=== PATIENT | male | born 1965 | race African-American/Black ===

== ENCOUNTER 2018-12-27 12:25 | Emergency (ER) | payer SELFPAY ==
[2018-12-27] MEDS ORDERED: CEFTRIAXONE 250 MG/VIAL ONE (13:22)
[2018-12-27] MEDS ORDERED: AZITHROMYCIN 250 MG TAB ONE (13:22)
[2018-12-27] MEDS ORDERED: LIDOCAINE 1% MPF 2 ML AMPULE ONE (13:22)
[2018-12-27 14:11] LABS: Urine Bacteria <20 /HPF (NONE SEEN); Urine RBC NONE SEEN /HPF (NONE SEEN)
[2018-12-27 14:13] LABS: Urine Culture Reflex Order NOT NEEDED
--- NOTE | 2018-12-27 14:17 | EDPHYS ---
Physician Documentation [facility] Name: Vance Kuo Age: 53 yrs Sex: Male : 1965 Arrival Date: 12/27/2018 Time: 12:29 Bed 12 Private MD: None, None ED Physician Jonathan Santizo HPI: 12/27 12:50 This 53 yrs old Black Male presents to ER via Ambulatory with complaints of Urinary pm1 Problem. 12:50 The patient presents with urinary symptoms, dysuria. Onset: The symptoms/episode pm1 began/occurred 1 month(s) ago. Modifying factors: The symptoms are alleviated by nothing, the symptoms are aggravated by urinating. Associated signs and symptoms: Pertinent negatives: abdominal pain, diarrhea, fever, hematuria, nausea, vomiting. Severity of symptoms: in the emergency department the symptoms are unchanged. The patient has experienced a previous episode, many years ago. The patient has not recently seen a physician. Patient with complaints of burning with urination for the past 1 month. Prior to onset of symptoms his girlfriend had a "urine infection." No penile discharge or testicular pain. Historical: - Allergies: 12:46 No Known Allergies; hj - Home Meds: 12:46 None [Active]; hj - PMHx: 12:46 None; hj - PSHx: 12:46 None; hj - Immunization history:: Adult Immunizations not up to date. - Social history:: Smoking status: Patient/guardian denies using tobacco, Patient/guardian denies using alcohol. - Ebola Screening: : Patient negative for fever greater than or equal to 101.5 degrees Fahrenheit, and additional compatible Ebola Virus Disease symptoms Patient denies exposure to infectious person Patient denies travel to an Ebola-affected area in the 21 days before illness onset. ROS: 12:50 Constitutional: Negative for fever, chills, and weight loss, Eyes: Negative for injury, pm1 pain, redness, and discharge, ENT: Negative for injury, pain, and discharge, Neck: Negative for injury, pain, and swelling, Cardiovascular: Negative for chest pain, palpitations, and edema, Respiratory: Negative for shortness of breath, cough, wheezing, and pleuritic chest pain, Abdomen/GI: Negative for abdominal pain, nausea, vomiting, diarrhea, and constipation, Back: Negative for injury and pain. 12:50 MS/Extremity: Negative for injury and deformity, Skin: Negative for injury, rash, and discoloration, Neuro: Negative for headache, weakness, numbness, tingling, and seizure. 12:50 : Positive for burning with urination, Negative for penile discharge, penile pain, testicular pain Exam: 12:50 Constitutional: This is a well developed, well nourished patient who is awake, alert, pm1 and in no acute distress. Head/Face: Normocephalic, atraumatic. Eyes: Pupils equal round and reactive to light, extra-ocular motions intact. Lids and lashes normal. Conjunctiva and sclera are non-icteric and not injected. Cornea within normal limits. Periorbital areas with no swelling, redness, or edema. ENT: Nares patent. No nasal discharge, no septal abnormalities noted. Tympanic membranes are normal and external auditory canals are clear. Oropharynx with no redness, swelling, or masses, exudates, or evidence of obstruction, uvula midline. Mucous membranes moist. Neck: Trachea midline, no thyromegaly or masses palpated, and no cervical lymphadenopathy. Supple, full range of motion without nuchal rigidity, or vertebral point tenderness. No Meningismus. Chest/axilla: Normal chest wall appearance and motion. Nontender with no deformity. No lesions are appreciated. Cardiovascular: Regular rate and rhythm with a normal S1 and S2. No gallops, murmurs, or rubs. Normal PMI, no JVD. No pulse deficits. Respiratory: Lungs have equal breath sounds bilaterally, clear to auscultation and percussion. No rales, rhonchi or wheezes noted. No increased work of breathing, no retractions or nasal flaring. Abdomen/GI: Soft, non-tender, with normal bowel sounds. No distension or tympany. No guarding or rebound. No evidence of tenderness throughout. Back: No spinal tenderness. No costovertebral tenderness. Full range of motion. Skin: Warm, dry with normal turgor. Normal color with no rashes, no lesions, and no evidence of cellulitis. MS/ Extremity: Pulses equal, no cyanosis. Neurovascular intact. Full, normal range of motion. 12:50 Neuro: Orientation: is normal, Motor: is normal, moves all fours, Gait: is steady, at a normal pace, without difficulty. Vital Signs: 12:46 BP 148 / 92; Pulse 75; Resp 18; Temp 98.6(O); Pulse Ox 100% on R/A; Weight 112.49 kg; hj Height 5 ft. 11 in. (180.34 cm); Pain 6/10; 14:20 BP 138 / 89; Pulse 74; Resp 18; Pulse Ox 100% ; hj 12:46 Body Mass Index 34.59 (112.49 kg, 180.34 cm) MDM: 12:54 Patient medically screened. pm1 14:14 Data reviewed: vital signs. Data interpreted: Pulse oximetry: on room air is 100 %. pm1 Interpretation: normal. Counseling: I had a detailed discussion with the patient and/or guardian regarding: the historical points, exam findings, and any diagnostic results supporting the discharge/admit diagnosis, lab results, the need for outpatient follow up, to return to the emergency department if symptoms worsen or persist or if there are any questions or concerns that arise at home. 12/27 12:48 Order name: Urine Microscopic Only; Complete Time: 14:14 12/27 13:05 Order name: Urine Dipstick--Ancillary (enter results) 12/27 12:48 Order name: Urine Dipstick-Ancillary (obtain specimen); Complete Time: 13:03 Administered Medications: 12:57 Drug: Rocephin (cefTRIAXone) 250 mg Route: IM; Site: right deltoid; 13:14 Follow up: Response: No adverse reaction 12:57 Drug: AZITHromycin 1 grams Route: PO; 13:14 Follow up: Response: No adverse reaction Disposition: 15:53 Co-signature as Attending Physician, Jonathan Santizo MD. rn Disposition: 12/27/18 14:16 Discharged to Home. Impression: Dysuria. - Condition is Stable. - Discharge Instructions: Dysuria. - Medication Reconciliation Form, Thank You Letter, Antibiotic Education, Prescription Opioid Use form. - Follow up: Emergency Department; When: As needed; Reason: Worsening of condition. Follow up: Private Physician; When: 2 - 3 days; Reason: Recheck today's complaints, Continuance of care, Re-evaluation by your physician. - Problem is new. - Symptoms have improved. Signatures: Dispatcher [employer] EDMS Jonathan Santizo MD MD rn Joaquin, Henry, RN RN Heriberto Roberson, CHILD CARE GIVER CHILD CARE GIVER pm1 Corrections: (The following items were deleted from the chart) 14:20 14:16 12/27/2018 14:16 Discharged to Home. Impression: Dysuria. Condition is Stable. hj Forms are Medication Reconciliation Form, Thank You Letter, Antibiotic Education, Prescription Opioid Use. Follow up: Emergency Department; When: As needed; Reason: Worsening of condition. Follow up: Private Physician; When: 2 - 3 days; Reason: Recheck today's complaints, Continuance of care, Re-evaluation by your physician. Problem is new. Symptoms have improved. pm1
--- NOTE | 2018-12-27 14:17 | ER ---
Nurse's Notes [facility] Name: Vance Kuo Age: 53 yrs Sex: Male : 1965 Arrival Date: 12/27/2018 Time: 12:29 Bed 12 Private MD: None, None Diagnosis: Dysuria Presentation: 12/27 12:43 Presenting complaint: Patient states: my girlfriend told me she had a bacterial hj infection, im not sure whether its STD or from the urine, but for a month, i have this pain when i pee; denies penile discharge;. Transition of care: patient was not received from another setting of care. Onset of symptoms was December 27, 2018. Risk Assessment: Do you want to hurt yourself or someone else? Patient reports no desire to harm self or others. Initial Sepsis Screen: Does the patient meet any 2 criteria? No. Patient's initial sepsis screen is negative. Does the patient have a suspected source of infection? No. Patient's initial sepsis screen is negative. Care prior to arrival: None. 12:43 Method Of Arrival: Ambulatory 12:43 Acuity: ELIZABETH 4 hj Triage Assessment: 13:50 General: Appears in no apparent distress. uncomfortable, Behavior is calm, cooperative, hj appropriate for age. Pain: Denies pain. Historical: - Allergies: 12:46 No Known Allergies; hj - Home Meds: 12:46 None [Active]; hj - PMHx: 12:46 None; hj - PSHx: 12:46 None; hj - Immunization history:: Adult Immunizations not up to date. - Social history:: Smoking status: Patient/guardian denies using tobacco, Patient/guardian denies using alcohol. - Ebola Screening: : Patient negative for fever greater than or equal to 101.5 degrees Fahrenheit, and additional compatible Ebola Virus Disease symptoms Patient denies exposure to infectious person Patient denies travel to an Ebola-affected area in the 21 days before illness onset. Screenin:46 Abuse screen: Denies threats or abuse. Denies injuries from another. Nutritional hj screening: No deficits noted. Tuberculosis screening: No symptoms or risk factors identified. Fall Risk None identified. Assessment: 12:46 General: Appears in no apparent distress. uncomfortable, Behavior is calm, cooperative, hj appropriate for age. Pain: Denies pain. Neuro: Level of Consciousness is awake, alert, obeys commands, Oriented to person, place, time, situation, Appropriate for age. Cardiovascular: Capillary refill < 3 seconds Patient's skin is warm and dry. Respiratory: Airway is patent Respiratory effort is even, unlabored, Respiratory pattern is regular, symmetrical. GI: No signs and/or symptoms were reported involving the gastrointestinal system. : Reports pain. EENT: No signs and/or symptoms were reported regarding the EENT system. Derm: No signs and/or symptoms reported regarding the dermatologic system. Musculoskeletal: No signs and/or symptoms reported regarding the musculoskeletal system. 13:52 Reassessment: awaiting umic results and POC;. hj Vital Signs: 12:46 BP 148 / 92; Pulse 75; Resp 18; Temp 98.6(O); Pulse Ox 100% on R/A; Weight 112.49 kg; hj Height 5 ft. 11 in. (180.34 cm); Pain 6/10; 14:20 BP 138 / 89; Pulse 74; Resp 18; Pulse Ox 100% ; hj 12:46 Body Mass Index 34.59 (112.49 kg, 180.34 cm) hj ED Course: 12:29 Patient arrived in ED. mr 12:29 None, None is Private Physician. mr 12:46 Triage completed. hj 12:46 Patient has correct armband on for positive identification. Bed in low position. Call hj light in reach. Side rails up X 1. 12:48 Arm band placed on right wrist. hj 12:54 Heriberto Sheth NP is PHCP. pm1 12:54 Jonathan Santizo MD is Attending Physician. pm1 13:14 Urine Microscopic Only Sent. hj 13:32 Saurabh Jo RN is Primary Nurse. hj 14:20 No provider procedures requiring assistance completed. Patient did not have IV access hj during this emergency room visit. Administered Medications: 12:57 Drug: Rocephin (cefTRIAXone) 250 mg Route: IM; Site: right deltoid; hj 13:14 Follow up: Response: No adverse reaction hj 12:57 Drug: AZITHromycin 1 grams Route: PO; hj 13:14 Follow up: Response: No adverse reaction hj Outcome: 14:16 Discharge ordered by . pm1 14:20 Discharged to home ambulatory. hj 14:20 Condition: stable 14:20 Discharge instructions given to patient, Instructed on discharge instructions, follow up and referral plans. Demonstrated understanding of instructions, follow-up care. 14:20 Patient left the ED. [place] Signatures: Danica Multani Henry, RN RN Heriberto Roberson, ADJUNCT SPANISH INSTRUCTOR ADJUNCT SPANISH INSTRUCTOR pm1
[2018-12-27 14:59] LABS: Urine Blood NEGATIVE (NEG); Urine Glucose NEGATIVE (NEG); Urine Protein NEGATIVE (NEG); Urine Specific Gravity 1.025 (1.005-1.030)
== END 2018-12-27 14:20 | disposition home or self-care (01) ==
LOC: ER 12:25
DX: R30.0 Dysuria (principal)
CPT/HCPCS: 81003; 81015; 96372; 99283; J0696; J2001

== ENCOUNTER 2019-06-24 09:49 | Emergency (ER) | payer SELFPAY ==
--- NOTE | 2019-06-24 10:33 | ER ---
Nurse's Notes [facility] Name: Vance Kuo Age: 53 yrs Sex: Male : 1965 Arrival Date: 06/24/2019 Time: 09:50 Bed 23 Private MD: Diagnosis: Dysuria Presentation: 06/24 09:59 Presenting complaint: Patient states: Pain with urination for the past 4 days. aj1 Transition of care: patient was not received from another setting of care. Onset of symptoms was 2018. Risk Assessment: Do you want to hurt yourself or someone else? Patient reports no desire to harm self or others. Initial Sepsis Screen: Does the patient meet any 2 criteria? No. Patient's initial sepsis screen is negative. Does the patient have a suspected source of infection? Yes: Dysuria/Frequency/Urgency/UTI. Care prior to arrival: None. 09:59 Method Of Arrival: Ambulatory aj1 09:59 Acuity: ELIZABETH 4 aj1 Triage Assessment: 10:00 General: Appears in no apparent distress. comfortable, Behavior is calm, cooperative, aj1 appropriate for age. Pain: Pain currently is 8 out of 10 on a pain scale. Neuro: Level of Consciousness is awake, alert, obeys commands, Oriented to person, place, time, situation. Cardiovascular: Patient's skin is warm and dry. Respiratory: Airway is patent Respiratory effort is even, unlabored, Respiratory pattern is regular, symmetrical. : Reports burning with urination. Historical: - Allergies: 10:00 No Known Allergies; aj1 - PMHx: 10:00 None; aj1 - PSHx: 10:00 None; aj1 - Immunization history:: Flu vaccine is not up to date. - Social history:: Smoking status: Patient/guardian denies using tobacco. - Ebola Screening: : Patient denies travel to an Ebola-affected area in the 21 days before illness onset. Screenin:24 Abuse screen: Denies threats or abuse. Denies injuries from another. Nutritional hb screening: No deficits noted. Tuberculosis screening: No symptoms or risk factors identified. Fall Risk None identified. Assessment: 10:24 General: Appears in no apparent distress. Behavior is calm, cooperative. Pain: Pain hb currently is 8 out of 10 on a pain scale. Neuro: Level of Consciousness is awake, alert, obeys commands, Oriented to person, place, time, situation. Cardiovascular: Capillary refill < 3 seconds Patient's skin is warm and dry. Respiratory: Airway is patent Respiratory effort is even, unlabored, Respiratory pattern is regular, symmetrical. GI: No signs and/or symptoms were reported involving the gastrointestinal system. : Reports burning with urination. EENT: No signs and/or symptoms were reported regarding the EENT system. Derm: Skin is pink, warm \T\ dry. Musculoskeletal: No signs and/or symptoms reported regarding the musculoskeletal system. Vital Signs: 10:00 BP 143 / 95; Pulse 76; Resp 18; Temp 97.1; Pulse Ox 98% on R/A; Weight 116.12 kg (R); aj1 Height 5 ft. 11 in. (180.34 cm) (R); Pain 8/10; 10:00 Body Mass Index 35.70 (116.12 kg, 180.34 cm) aj1 ED Course: 09:50 Patient arrived in ED. as 09:59 Triage completed. aj1 10:00 Arm band placed on Patient placed in waiting room, Patient notified of wait time. aj1 10:01 [facility]C [facility] kb 10:01 Jose Crane MD is Attending Physician. kb 10:23 Carla Pineda, JEANNIE is Primary Nurse. hb 10:23 Urine Microscopic Only Sent. hb 10:30 Patient has correct armband on for positive identification. hb 11:03 No provider procedures requiring assistance completed. Patient did not have IV access hb during this emergency room visit. Administered Medications: 10:32 CANCELLED (Other Intervention Used): Rocephin 1 grams IV at calculated rate once; Given kb slow IV push per pharmacy instructions 10:40 Drug: Zithromax 1 grams Route: PO; hb 11:03 Follow up: Response: Medication administered at discharge. hb 10:41 Drug: Rocephin (cefTRIAXone) 250 mg Route: IM; Site: right ventrogluteal; hb 11:03 Follow up: Response: No adverse reaction hb Outcome: 10:33 Discharge ordered by . kb 11:03 Discharged to home ambulatory. hb 11:03 Condition: stable 11:03 Discharge instructions given to patient, Instructed on discharge instructions, follow up and referral plans. medication usage, Demonstrated understanding of instructions, follow-up care, medications, Prescriptions given X 1. 11:03 Patient left the ED. hb Signatures: Qiana Torres, GILL WEAVER-Razia Rosario RN RN aj1 Lisa Hand as Carla Pineda, RN RN hb
--- NOTE | 2019-06-24 10:34 | EDPHYS ---
Physician Documentation [facility] Name: Vance Kuo Age: 53 yrs Sex: Male : 1965 Arrival Date: 06/24/2019 Time: 09:50 Bed 23 Private MD: ED Physician Jose Crane HPI: 06/24 10:29 This 53 yrs old Black Male presents to ER via Ambulatory with complaints of Pain With kb Urination. 10:29 The patient presents with urinary symptoms, dysuria. Onset: The symptoms/episode kb began/occurred 4 day(s) ago. Modifying factors: The symptoms are alleviated by nothing, the symptoms are aggravated by nothing. Associated signs and symptoms: Pertinent positives: dysuria, Pertinent negatives: abdominal pain, constipation, diarrhea, fever, hematuria, nausea, vomiting. Severity of symptoms: At their worst the symptoms were moderate, in the emergency department the symptoms are unchanged. The patient has not recently seen a physician. Pt reports dysuria. Has had ureteritis in the past and this feels the same. "I just didn't want to wait for the health clinic to open on Tuesday. They gave me a shot and doxycycline last time and it cleared it up.". Historical: - Allergies: 10:00 No Known Allergies; aj1 - PMHx: 10:00 None; aj1 - PSHx: 10:00 None; aj1 - Immunization history:: Flu vaccine is not up to date. - Social history:: Smoking status: Patient/guardian denies using tobacco. - Ebola Screening: : Patient denies travel to an Ebola-affected area in the 21 days before illness onset. ROS: 10:31 Constitutional: Negative for fever, chills, and weight loss, ENT: Negative for injury, kb pain, and discharge, Neck: Negative for injury, pain, and swelling, Cardiovascular: Negative for chest pain, palpitations, and edema, Respiratory: Negative for shortness of breath, cough, wheezing, and pleuritic chest pain, Abdomen/GI: Negative for abdominal pain, nausea, vomiting, diarrhea, and constipation, Back: Negative for injury and pain, MS/Extremity: Negative for injury and deformity, Skin: Negative for injury, rash, and discoloration, Neuro: Negative for headache, weakness, numbness, tingling, and seizure. 10:31 : Positive for burning with urination. Exam: 10:31 Constitutional: This is a well developed, well nourished patient who is awake, alert, kb and in no acute distress. Head/Face: Normocephalic, atraumatic. Neck: Trachea midline, no thyromegaly or masses palpated, and no cervical lymphadenopathy. Supple, full range of motion without nuchal rigidity, or vertebral point tenderness. No Meningismus. Chest/axilla: Normal chest wall appearance and motion. Nontender with no deformity. No lesions are appreciated. Cardiovascular: Regular rate and rhythm with a normal S1 and S2. No gallops, murmurs, or rubs. Normal PMI, no JVD. No pulse deficits. Respiratory: Lungs have equal breath sounds bilaterally, clear to auscultation and percussion. No rales, rhonchi or wheezes noted. No increased work of breathing, no retractions or nasal flaring. Abdomen/GI: Soft, non-tender, with normal bowel sounds. No distension or tympany. No guarding or rebound. No evidence of tenderness throughout. Back: No spinal tenderness. No costovertebral tenderness. Full range of motion. Skin: Warm, dry with normal turgor. Normal color with no rashes, no lesions, and no evidence of cellulitis. MS/ Extremity: Pulses equal, no cyanosis. Neurovascular intact. Full, normal range of motion. Neuro: Awake and alert, GCS 15, oriented to person, place, time, and situation. Cranial nerves II-XII grossly intact. Motor strength 5/5 in all extremities. Sensory grossly intact. Cerebellar exam normal. Normal gait. Vital Signs: 10:00 BP 143 / 95; Pulse 76; Resp 18; Temp 97.1; Pulse Ox 98% on R/A; Weight 116.12 kg (R); aj1 Height 5 ft. 11 in. (180.34 cm) (R); Pain 8/10; 10:00 Body Mass Index 35.70 (116.12 kg, 180.34 cm) aj1 MDM: 10:16 Patient medically screened. kb 10:28 Data reviewed: vital signs, nurses notes. Data interpreted: Pulse oximetry: on room air kb is 98 %. Interpretation: normal. Counseling: I had a detailed discussion with the patient and/or guardian regarding: the historical points, exam findings, and any diagnostic results supporting the discharge/admit diagnosis, lab results, the need for outpatient follow up, a family practitioner, to return to the emergency department if symptoms worsen or persist or if there are any questions or concerns that arise at home. 06/24 10:01 Order name: Urine Microscopic Only kb 06/24 10:24 Order name: Urine Dipstick--Ancillary (enter results) eb 06/24 10:01 Order name: Urine Dipstick-Ancillary (obtain specimen); Complete Time: 10:23 kb Administered Medications: 10:32 CANCELLED (Other Intervention Used): Rocephin 1 grams IV at calculated rate once; Given kb slow IV push per pharmacy instructions 10:40 Drug: Zithromax 1 grams Route: PO; hb 11:03 Follow up: Response: Medication administered at discharge. hb 10:41 Drug: Rocephin (cefTRIAXone) 250 mg Route: IM; Site: right ventrogluteal; hb 11:03 Follow up: Response: No adverse reaction hb Disposition: 17:42 Co-signature as Attending Physician, Jose Crane MD Did not see or evaluate the ps1 patient. Signing the chart for administrative purposes. Not an endorsement of care provided. . Disposition: 06/24/19 10:33 Discharged to Home. Impression: Dysuria. - Condition is Stable. - Discharge Instructions: Dysuria, Sexually Transmitted Disease, [id number]. - Prescriptions for Doxycycline Hyclate 100 mg Oral Tablet - take 1 tablet by ORAL route every 12 hours; 20 tablet. - Medication Reconciliation Form, Thank You Letter, Antibiotic Education, Prescription Opioid Use form. - Follow up: Emergency Department; When: As needed; Reason: Worsening of condition. Follow up: Private Physician; When: 2 - 3 days; Reason: Recheck today's complaints, Continuance of care, Re-evaluation by your physician. Signatures: Dispatcher [employer] Qiana Valentin FNP-C FNP-Razia Rosario RN RN aj1 Carla Pineda, Jose Hanna RN, MD MD ps1 Corrections: (The following items were deleted from the chart) 10:32 10:32 Rocephin 1 grams IV at calculated rate once; Given slow IV push per pharmacy kb instructions ordered. kb 11:03 10:33 06/24/2019 10:33 Discharged to Home. Impression: Dysuria. Condition is Stable. hb Forms are Medication Reconciliation Form, Thank You Letter, Antibiotic Education, Prescription Opioid Use. Follow up: Emergency Department; When: As needed; Reason: Worsening of condition. Follow up: Private Physician; When: 2 - 3 days; Reason: Recheck today's complaints, Continuance of care, Re-evaluation by your physician. kb
[2019-06-24] MEDS ORDERED: WATER FOR INJ,STERILE 10 ML ONE (10:38)
[2019-06-24] MEDS ORDERED: AZITHROMYCIN 250 MG TAB ONE (10:38)
[2019-06-24] MEDS ORDERED: CEFTRIAXONE 250 MG/VIAL ONE (10:38)
[2019-06-24 11:32] VITALS: BP 143/95; TEMP 97.1; O2SAT 98
[2019-06-24 11:47] LABS: Urine Bacteria <20 /HPF (NONE SEEN); Urine Culture Reflex Order NOT NEEDED; Urine RBC <5 /HPF (NONE SEEN)
[2019-06-24 11:48] LABS: Urine Blood NEGATIVE (NEG); Urine Glucose NEGATIVE (NEG); Urine Protein NEGATIVE (NEG)
== END 2019-06-24 11:03 | disposition home or self-care (01) ==
LOC: ER 09:49
DX: R30.0 Dysuria (principal)
CPT/HCPCS: 81003; 81015; 96372; 99283; J0696